=== PATIENT | female | born 1945 | race Caucasian/White ===

== ENCOUNTER → 2017-05-11 | Outpatient (CLI) | payer OTHER, BC ==
[~2017-05-11] VITALS: Ht 177.8 cm; Wt 73.0 kg
[~2017-05-11] MED LIST: BENAZEPRIL HCL20 MG PO; CENTRUM SILVER1 EAC3 PO; CLARITIN,ALAVAR10 MG PO; EVISTA60 MG PO; FISH OIL 1,001000 M2 PO; LO-DOSE ASPIRIN81 M1 PO; LOVENOX100 MG/1 M SC; METOCLOPRAMIDE10 MG PO; PRESERVISIO1 CAPSULE PO; PROTONIX40 MG PO; VITAMIN D-3 401 EACH PO
== END | disposition home or self-care (01) ==
LOC: OPR 08:21 → EDSTATUS 09:00
PROC: 07BH3ZX Excision of Right Inguinal Lymphatic, Percutaneous Approach, Diagnostic (ICD-10-PCS; principal; 2017-05-11)
DX: C77.5 Secondary and unspecified malignant neoplasm of intrapelvic lymph nodes (principal); C56.9 Malignant neoplasm of unspecified ovary
CPT/HCPCS: 77012; 88305; 88341 TC; 88342 TC; J3010

== ENCOUNTER 2017-06-10 09:39 | Observation (INO) | payer OTHER, BC ==
[~2017-06-10] VITALS: Ht 177.8 cm; Wt 73.9 kg
[2017-06-10 10:21] LABS: CHLORIDE 104 mEq/L (99-109); POTASSIUM 4.3 mEq/L (3.7-5.4); SODIUM 136 mEq/L (136-147)
[2017-06-10 10:23] LABS: GLUCOSE 131 mg/dL (70-99)
[2017-06-10 10:24] LABS: ANION GAP 6 MEQ/L (2-14)
[2017-06-10 10:27] LABS: GFR ESTIMATE (CALCULATED) > 59 mL/min/
[2017-06-10 10:28] LABS: UREA NITROGEN (BUN) 17 mg/dL (9-23)
[2017-06-10 10:35] LABS: MCH 31.2 PG (29.0-34.0); MCHC 34.4 G/DL (30.0-36.0); RBC DIS.WIDTH-CV 12.3 % (11.8-14.6); RBC DIS.WIDTH-SD 40.7 % (39-53); RED BLOOD COUNT 2.98 M/uL (3.80-5.20)
[2017-06-10 10:36] LABS: WHITE BLOOD COUNT 0.9 K/uL (4.1-10.2)
[2017-06-10 10:37] LABS: MCV 90.6 FL (83-99)
[2017-06-10 11:14] LABS: ABS NEUTROPHIL COUNT 0; ATYPICAL LYMPHOCYTE 1.3 %; EOSINOPHIL ABS CT 0; EOSINOPHILS 0.9 % (0-5.0); IMM.PLATELET FRACTION 3.3 (1-7); INSTRUMENT ABS NEUTROPHIL CT 0 K/uL; LYMPHOCYTES 90.4 % (15.0-45.0); METAMYELOCYTES 0.4 %; SEG.NEUTROPHILS 2.6 % (46.0-76.0)
[2017-06-10 11:16] LABS: PLATELET COUNT 9 K/uL (156-360)
[2017-06-10 11:17] LABS: MEAN PLAT.VOLUME 14.6 uM^3 (9.5-12.4); PLAT.SUFFICIENCY VERY DECREASED
[2017-06-10] MEDS ORDERED: LOPERAMIDE2 MG PO (12:25)
[2017-06-10 12:46] LABS: ADD MIUA? NO; BILIRUBIN NEGATIVE; BLOOD NEGATIVE; COLOR YELLOW ((YELLOW)); GLUCOSE (STRIP) NEGATIVE; KETONES NEGATIVE; LEUKOCYTES NEGATIVE; NITRITE NEGATIVE; PROTEIN (STRIP) NEGATIVE; SPECIFIC GRAVITY 1.005 (1.000-1.030); UROBILINOGEN 0.2 MG/DL (0.2-1.0)
[2017-06-10] MEDS ORDERED: EYE DROP TEARS15 ML LEFT EYE (13:38)
[2017-06-10 15:38] VITALS: BP 152/77
[2017-06-10 15:53] VITALS: BP 149/79
[2017-06-10 16:07] VITALS: BP 149/79
[2017-06-10 16:28] VITALS: BP 180/85
[2017-06-10 17:07] VITALS: BP 141/68
[2017-06-10 20:25] LABS: C DIFF TOXIN NEGATIVE (NEGATIVE)
[2017-06-10 20:40] LABS: PROBE CHECK PASS; SPECIMEN PROCESSING CONTROL PASS
[2017-06-10 20:50] VITALS: BP 167/71
[2017-06-10 23:03] LABS: HEMATOCRIT 21.7 % (36.0-46.0); MCH 31.6 PG (29.0-34.0); MCHC 34.6 G/DL (30.0-36.0); MCV 91.6 FL (83-99); RBC DIS.WIDTH-CV 12.6 % (11.8-14.6); RBC DIS.WIDTH-SD 42.1 % (39-53)
[2017-06-10 23:04] LABS: RED BLOOD COUNT 2.37 M/uL (3.80-5.20)
[2017-06-10 23:49] LABS: IMM.PLATELET FRACTION 1.7 (1-7); PLAT.SUFFICIENCY DECREASED
[2017-06-10 23:50] LABS: MEAN PLAT.VOLUME 9.6 uM^3 (9.5-12.4)
[2017-06-10 23:51] LABS: PLATELET COUNT 29 K/uL (156-360)
[2017-06-11 05:06] VITALS: BP 157/70
[2017-06-11 07:09] LABS: HEMATOCRIT 23.4 % (36.0-46.0); MCH 32.3 PG (29.0-34.0); MCHC 34.6 G/DL (30.0-36.0); MCV 93.2 FL (83-99); RBC DIS.WIDTH-CV 12.6 % (11.8-14.6); RBC DIS.WIDTH-SD 42.7 % (39-53); RED BLOOD COUNT 2.51 M/uL (3.80-5.20)
[2017-06-11 07:13] LABS: ANION GAP 6 MEQ/L (2-14); CHLORIDE 106 MEQ/L (99-109); GFR ESTIMATE (CALCULATED) > 59 mL/min/; POTASSIUM 4.3 MEQ/L (3.7-5.4); SAMPLE HEMOLYSIS CHECK 0; SAMPLE ICTERIC CHECK 0; SAMPLE LIPEMIA CHECK 0; SODIUM 142 MEQ/L (136-147); UREA NITROGEN (BUN) 14 mg/dL (9-23)
[2017-06-11 07:16] LABS: GLUCOSE 93 mg/dL (70-99)
[2017-06-11 07:19] LABS: IMM.PLATELET FRACTION 1.4 (1-7); MEAN PLAT.VOLUME 9.8 uM^3 (9.5-12.4)
[2017-06-11 07:20] LABS: PLAT.SUFFICIENCY VERY DECREASED; PLATELET COUNT 29 K/uL (156-360)
[2017-06-11 07:55] VITALS: BP 150/69
[2017-06-11 11:53] VITALS: BP 142/66
== END 2017-06-11 12:33 | disposition home or self-care (01) ==
LOC: EME 09:39 → EDOF 14:59 → 5EAST 14:59 → CANRESERV 15:05 → ENRESERV 15:05 → 5EAST 16:18
PROVIDERS: Internal Medicine; Internal Medicine Medical Oncology
PROC: 30253R1 (ICD-10-PCS; principal; 2017-06-10)
DX: D61.810 Antineoplastic chemotherapy induced pancytopenia (principal); D69.59 Other secondary thrombocytopenia; C56.9 Malignant neoplasm of unspecified ovary; C77.5 Secondary and unspecified malignant neoplasm of intrapelvic lymph nodes; C78.7 Secondary malignant neoplasm of liver and intrahepatic bile duct; T45.1X5A Adverse effect of antineoplastic and immunosuppressive drugs, initial encounter; I10 Essential (primary) hypertension; R19.7 Diarrhea, unspecified; Z92.21 Personal history of antineoplastic chemotherapy; Z87.891 Personal history of nicotine dependence; Z80.42 Family history of malignant neoplasm of prostate; Z90.710 Acquired absence of both cervix and uterus; Z93.2 Ileostomy status; Z88.0 Allergy status to penicillin; Z88.1 Allergy status to other antibiotic agents; Z88.8 Allergy status to other drugs, medicaments and biological substances
CPT/HCPCS: 71010; 80048; 81003; 83030; 85025; 85027; 86850; 86900; 86901; 87493; 93005; 99281; 99285; G0378; J2790; P9035